=== PATIENT | male | born 1970 | race Caucasian/White ===

== ENCOUNTER → 2025-04-18 10:00 | Outpatient (BNV) | payer BC, SELFPAY | PROVIDERS: PCP Internal Medicine; Visit Provider Psychiatry & Neurology Neurology | DX: G62.9 Polyneuropathy, unspecified (principal) | CPT/HCPCS: 95886; 95911 ==

== ENCOUNTER 2025-04-18 10:11 | Outpatient (REF) | payer BC, SELFPAY ==
--- NOTE | 2025-04-18 | EMG_ITS ---
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 EMG of the left L4-S1 innervated muscles consistent with chronic distal neuropathic changes. Please see detail neurophysiological report MTDD
--- OUTSIDE RECORDS SUMMARY | 2025-04-18 10:56 | XMS_ITS | Patient Health Record ---
Author Organization [facility] Address [address] [place] [address] Care Team Providers Care Treating And Pumping Supervisor Name Role Phone Khoa Marc MD Primary Care Provider Katelyn Thorne Unavailable [phone] Allergies No Known Allergies Reason For Referral No Information Medications Medication SIG (Take, Route, Frequency, Duration) Notes Start Date End Date Status Ativan Active Atorvastatin Calcium 10 MG 1 tablet Oral ly Once a day; Duration: 30 day(s) Active Ibuprofen 800 MG 1 tablet with food o r milk as needed Orally Three times a day; Duration: 14 days 10/22/2020 Active Adderall 10 MG 1 tablet Orally Twic e a day Active Singulair 10 MG 1 tablet Orally Once a day; Duration: 30 day(s) Active Prevacid 15 MG 1 capsule before a m eal Orally Once a day; Duration: 30 day(s) Active Multivitamin - 1 tablet Orally Once a day; Duration: 30 day(s) Active Vitamin D3 250 MCG (36665 UT) as directed Orally Active Zolpidem Tartrate 10 MG 1 tablet at bedt valente as needed Orally Once a day Active Xyzal Allergy 24HR 5 MG 1 tablet in the evening Orally Once a day; Duration: 30 day(s) Active Social History Tobacco Use: Social History Observation Description Date Details (start date - stop date) Never Smoker NA - NA Tobacco Use/Smoking Question Answer Notes Are you a: nonsmoker Additional Findings: Tobacco Non-User Aggressive non-smoker Alcohol Screen Question Answer Notes Did you have a drink contain ing alcohol in the past year? Yes How often did you have a dri nk containing alcohol in the past year? 2 to 4 times a month (2 points) How often did you have 6 or more drinks on one occasion in the past year? Monthly (2 points) Points 4 Interpretation Positive Tobacco use other than smoking: Question Answer Notes Are you an other tobacco user? No Plan Of Treatment Pending Test Test Name Order Date X ray : Foot, left 3V 10/22/2020 X ray : Foot, right 3V 10/22/2020 Insurance Providers Payer Name Payer Address Payer Phone Subscriber Number Group Number Insured Name Patient Relationship to Insured Coverage Start Date Coverage End Date [facility] [employer] [address] [place] [address] [id number] Self - patient is the insured Medical (General) History Medical History History ICD Code Joint implants/screws Surgical History Surgery Date(Month/Year) bunionectomy 02/08/2001
== END 2025-04-18 10:12 | disposition home or self-care (01) ==
LOC: HO.NEURO 10:11
PROVIDERS: PCP Internal Medicine; Visit Provider Psychiatry & Neurology Neurology
DX: G60.8 Other hereditary and idiopathic neuropathies (principal)
CPT/HCPCS: 95885; 95911